=== PATIENT | male | born 1970 | race Caucasian/White ===

== ENCOUNTER → 2020-08-20 | Day surgery (SDC) | payer OTHER ==
[~2020-08-20] VITALS: Ht 190.5 cm; Wt 97.5 kg
[2020-08-20] VITALS (9 sets, daily range): BP systolic 100–129; BP diastolic 58–79
[~2020-08-20] MED LIST: LR 1000ml ONE; Lidocaine 1% MPF 10mg/ml 5ml ONE
--- NOTE | 2020-08-20 07:59 | Anethesia Preoperative Eval ---
Anesthesia Pre-op PMH/ROS General Date of Evaluation: Aug 20, 2020 Time of Evaluation: 08:00 Anesthesiologist: michelle ASA Score: ASA 1 Mallampati Score Class I : Soft palate, uvula, fauces, pillars visible Class II: Soft palate, uvula, fauces visible Class III: Soft palate, base of uvula visible Class IV: Only hard plate visible Mallampati Classification: Class II Surgeon: Oneil Diagnosis: screening Surgical Procedure: Colonoscopy Anesthesia History: PONV Family History: no anesthesia problems Allergies: Coded Allergies: No Known Allergies (Unverified , 08/20/20) Medications: see eMAR Patient NPO?: Yes NPO Date: Aug 20, 2020 NPO Time: 00:01 Past Medical History Cardiovascular: Denies: HTN, CAD, [place], valve dz, arrhythmia, other Pulmonary: Denies: asthma, COPD, LEVI, other Gastrointestinal/Genitourinary: Denies: GERD, CRI, ESRD, other Neurologic/Psychiatric: Denies: dementia, CVA, depression/anxiety, TIA, other Endocrine: Denies: DM, hypothyroidism, steroids, other HEENT: Denies: cataract (L), cataract (R), glaucoma, [place] (L), [place] (R), other Hematology/Immune: Denies: anemia, DVT, bleeding disorder, other Musculoskeletal/Integumentary: Denies: OA, RA, DJD, DDD, edema, other PSxH Narrative: bone supur surgery Anesthesia Pre-op Phys. Exam Physician Exam Last Vital Signs Date Time Temp Pulse Resp B/P (MAP) Pulse Ox O2 Delivery O2 Flow Rate FiO2 08/20/20 07:17 98.0 64 20 129/79 100 Room Air Constitutional: NAD Neurologic: CN 2-12 intact Cardiovascular: RRR Respiratory: CTA Gastrointestinal: S/NT/ND Airway Exam Mallampati Classification 2 Mallampati Score: Class II MO: full ROM: full Dentures: no upper, no lower Anesthesia Pre-op A/P Studies Pre-op Studies: EKG - SR Risk Assessment & Plan Assessment: covid neg Plan: mac Status Change Before Surgery: No Pre-Antibiotics Drug: none Sindy Oneil CRNA Aug 20, 2020 07:59
--- NOTE | 2020-08-20 08:08 | Short Stay Surgery H&P ---
History of Present Illness History of Present Illness Chief Complaint see attached HPI Major Hill, III is a 50 year old male who was admitted on for Colon Screening Patient History Allergies: Coded Allergies: No Known Allergies (Unverified , 08/20/20) Medication History No Active Prescriptions or Reported Meds Physical Exam Vital Signs Last Vital Signs Date Time Temp Pulse Resp B/P (MAP) Pulse Ox O2 Delivery O2 Flow Rate FiO2 08/20/20 07:17 98.0 64 20 129/79 100 Room Air Plan Attestation Are the patient's medical conditions optimized for surgery? Ольга Echeverria MD Aug 20, 2020 08:08
--- NOTE | 2020-08-20 08:09 | Pre-Procedure Note/Attestation ---
Pre-Procedure Note/Attestation Complete Prior to Procedure Planned Procedure: not applicable Procedure Narrative: colonoscopy Indications for Procedure Pre-Operative Diagnosis: screen Attestation I attest that I discussed the nature of the procedure; its benefits; risks and complications; and alternatives (and the risks and benefits of such alternatives), prior to the procedure, with the patient (or the patient's legal chemical sales representative). I attest that, if there was a reasonable possibility of needing a blood transf usion, the patient (or the patient's legal chemical sales representative) was given the [facility] standardized written summary, pursuant to the Gunn[place] Blood Safety Act ([place] Health and Safety Code # 1645, as amended). I attest that I re-evaluated the patient just prior to the surgery and that there has been no change in the patient's H&P, except as documented below: Ольга Echeverria MD Aug 20, 2020 08:09
--- NOTE | 2020-08-20 08:44 | Endoscopy Procedure Note ---
Endoscopy Procedure Note General Indication for Procedure: screen Procedures Performed: colonoscopy Operative Findings/Diagnosis: rare l sided diverticulosis Specimen: none Pt Tolerated Procedure Well: Yes Estimated Blood Loss: none Anesthesia Anesthesiologist: Sindy nurse android ui developer Anesthesia: MAC Medications Medication Given: see anesthesia record Inserted Devices Implant(s) used?: No GI Core Measures 50 yrs or older w/o bx or poly: Yes 10yrs. F/U recommended: Yes If not recommended, why?: 18 years or older w/prev. colo: No <3yrs. since last colonoscopy: No Med reason:<3 yrs.: System Reason:<3 yrs.: Last colonoscopy >= to 3yrs: Yes Ольга Echeverria MD Aug 20, 2020 08:44
--- NOTE | 2020-08-20 08:45 | Brief Operative Note ---
Immediate Post Operative Note Operative Note Chief Complaint: scren Pre-op Diagnosis: screen Procedure: colon Post-op Diagnosis: rare (L) diverticulosis Surgeon: kinjal Specimen: none Complications: none Fluids: per anesthesia Implant(s) used?: No Ольга Echeverria MD Aug 20, 2020 08:45
--- NOTE | 2020-08-20 08:48 | Immediate Post-Op Evaluation ---
Immediate Post-Op Evalulation Immediate Post-Op Evalulation Procedure: colonoscopy Date of Evaluation: Aug 20, 2020 Time of Evaluation: 08:47 IV Fluids: 700 Blood Pressure Systolic: 110 Blood Pressure Diastolic: 62 Pulse Rate: 65 Respiratory Rate: 14 O2 Sat by Pulse Oximetry: 100 Temperature (Fahrenheit): 98.2 Nausea: No Vomiting: No Complications none Patient Status: awake, reacts, patent Hydration Status: adequate Drug: none Sindy Oneil CRNA Aug 20, 2020 08:48
--- NOTE | 2020-08-20 09:45 | 48 Hour Post Anesthesia Eval ---
Post Anesthesia Evaluation Procedure: colonoscopy Date of Evaluation: Aug 20, 2020 Time of Evaluation: 09:45 Blood Pressure Systolic: 100 0: 60 Pulse Rate: 51 Respiratory Rate: 14 O2 Sat by Pulse Oximetry: 98 Airway: patent Nausea: No Vomiting: No Hydration Status: adequate Cardiopulmonary Status: stable Mental Status/LOC: patient returned to baseline Post-Anesthesia Complications: none Follow-up care needed: N/A Sindy Oneil CRNA Aug 20, 2020 09:45
--- NOTE | 2020-08-23 22:44 | Operative Note - Dictated ---
DATE OF OPERATION: 08/20/2020 GASTROLOGY PROCEDURE REPORT PROCEDURE: Screening colonoscopy. SURGEON: Ольга Echeverria M.D. ANESTHESIA: Please see the separate anesthesiologist notes for details. PRE-ENDOSCOPIC DIAGNOSIS: Need for screening colonoscopy. POST-ENDOSCOPIC DIAGNOSES: 1. Mild left-sided diverticulosis. 2. Normal terminal ileum for about 10 cm. 3. No colonic polyps identified. DESCRIPTION OF PROCEDURE: The procedure, its risks, indications, alternatives, and possible complications were explained to the patient and informed consent was obtained. The patient was then sedated in the left lateral decubitus position. A diagnostic colonoscope was introduced in the rectum and advanced to 10 cm into the terminal ileum. The colonoscope was then gradually withdrawn. The mucosa examined carefully. Examination of the mucosa revealed only mild left-sided diverticulosis. There were no polyps identified. Retroflexed view of the rectum was otherwise unremarkable. The colonoscope was removed. The patient was sent to recovery room in good condition. COMPLICATIONS: None. RECOMMENDATIONS: 1. High-fiber diet. 2. Follow up with primary physician. 3. Annual stool occult blood testing. 4. Repeat colonoscopy in 10 years. Thank you for asking me to participate in the care of this patient. Ольга Echeverria M.D. DR: Dylan JOB#: [id number] CC: Chetan Whitt M.D.
== END | disposition home or self-care (01) ==
LOC: GAS 06:52
DX: Z12.11 Encounter for screening for malignant neoplasm of colon (principal); K57.90 Diverticulosis of intestine, part unspecified, without perforation or abscess without bleeding
CPT/HCPCS: 45378; 94003; J2704; J7120; U0004; 94150